=== PATIENT | male | born 1980 | race Caucasian/White ===

== ENCOUNTER → 2020-07-02 07:54 | Outpatient (BNVA) | payer OTHER, SELFPAY | PROVIDERS: PCP Hospitalist; Referring Provider Nurse Practitioner Family; Visit Provider Physician Assistant | DX: Z76.89 Persons encountering health services in other specified circumstances (principal) ==

== ENCOUNTER 2020-07-07 08:12 | Outpatient (REF) | payer OTHER, SELFPAY ==
--- NOTE | 2020-07-07 08:17 | FL_ITS ---
EXAMINATION: FL BARIUM SWALLOW CLINICAL INFORMATION: Dysphagia. Previous history of esophageal endoscopy for removal of obstructed food with COMPARISON: None. TECHNIQUE: Barium swallow examination is performed using fluoroscopic evaluation in addition to multiple fluoroscopic spot views. The patient is imaged both upright and prone and using both thick and thin sulfate along with effervescent granules. Fluoroscopy time: 2.5 minutes DAP: 12.768 Gy-cm2 Images: 63 FINDINGS: Following oral administration of thick barium and barium-coated turkey in upright view, there is normal propagation of bolus from the oral cavity through the pharynx and esophagus and into the stomach without any obstruction, narrowing or stricture. There is no diverticular lumbar mass seen in mid to distal esophagus. No extrinsic compression either. No retention of barium in the valleculae or piriform sinuses. On oral administration of thin barium in prone lying position, there is good distention of the entire esophagus without any intraluminal filling defect. There is no gastroesophageal reflux or hiatal hernia seen is supine, prone or decubitus lying position. FL/FL barium swallow IMPRESSION: Unremarkable barium swallow exam.
== END 2020-07-07 08:13 | disposition home or self-care (01) ==
LOC: HO.XRAY 08:12
PROVIDERS: Visit Provider Physician Assistant
DX: R13.10 Dysphagia, unspecified (principal)
CPT/HCPCS: 74220

== ENCOUNTER → 2020-07-21 08:18 | Outpatient (BNVA) | payer OTHER, SELFPAY | PROVIDERS: PCP Hospitalist; Visit Provider Physician Assistant | DX: Z76.89 Persons encountering health services in other specified circumstances (principal) ==

== ENCOUNTER 2023-06-04 11:15 | Emergency (ER) | payer OTHER, SELFPAY ==
--- NOTE | ~2023-06-04 | CT_ITS ---
EXAMINATION: CT ABDOMEN AND PELVIS WITH CONTRAST CLINICAL INFORMATION: Fall. Abdominal pain. COMPARISON: Chest CT from the same day TECHNIQUE: Multidetector volumetric images were obtained from the superior aspect of the liver through the pubic symphysis following administration 85 mL of Omnipaque 350 intravenous contrast. Sagittal and coronal reformatted images were obtained on the technologist's workstation. Oral contrast: Yes This CT examination was performed using dose optimization techniques as appropriate, variously including the following: *Automated exposure control *Adjustment of mA and/or kV according to patient size (this includes techniques or standardized protocols for targeted exams where dose is matched to indication/reason for exam; i.e. extremities or head) *Use of iterative reconstruction technique DLP: 401 mGy-cm FINDINGS: LUNG BASES: The visualized lung bases are clear. LIVER, GALLBLADDER, AND BILIARY TREE: The liver is normal in size, shape, and attenuation. No focal hepatic lesion or biliary ductal dilatation is present. The gallbladder is unremarkable with no evidence of radiopaque gallstones, gallbladder wall thickening, or obvious pericholecystic inflammatory changes. PANCREAS: Unremarkable. SPLEEN: Unremarkable. ADRENAL GLANDS: Unremarkable. KIDNEYS AND URETERS: The kidneys are normal in size, shape, and attenuation. No hydronephrosis, hydroureter, or calculi seen. Small left renal cyst. No imaging follow-up recommended. No perinephric stranding. BLADDER: Unremarkable. GASTROINTESTINAL TRACT: The small and large bowel are unremarkable. The appendix is unremarkable. ABDOMINAL WALL: No significant hernia is appreciated. LYMPH NODES: Normal. VASCULAR: Unremarkable. PELVIC VISCERA: Unremarkable. OSSEOUS STRUCTURES: Left posterior ninth rib fracture. No other fracture seen. CT/CT abdomen pelvis w IV con IMPRESSION: Left posterior ninth rib fracture. Otherwise unremarkable exam. Fleischner guidelines were followed.
--- NOTE | ~2023-06-04 | XR_ITS ---
EXAMINATION: XR RIBS, LEFT CLINICAL INFORMATION: Fall COMPARISON: None available. TECHNIQUE: 3 views of the left ribs and one view of the chest were obtained. FINDINGS: Lungs are clear. No consolidation, pneumothorax, or pleural effusion. The cardiomediastinal silhouette and pulmonary vasculature are normal. Left posterior lateral seventh through ninth minimally displaced rib fractures. XR/XR ribs LT min 3V w CXR1V IMPRESSION: Left posterior lateral seventh and ninth minimally displaced rib fractures. No evidence for acute disease in the chest.
--- NOTE | ~2023-06-04 | CT_ITS ---
EXAMINATION: CT CHEST WITH CONTRAST CLINICAL INFORMATION: Fall. Pain. COMPARISON: Chest and left rib x-rays from earlier the same day TECHNIQUE: Multidetector volumetric CT imaging of the chest was obtained after the administration of 85 mL of Omnipaque 350 intravenous contrast without immediate adverse reactions. Axial MIP volume rendering provided. Sagittal and coronal reformatted images were obtained. This CT examination was performed using dose optimization techniques as appropriate, variously including the following: *Automated exposure control *Adjustment of mA and/or kV according to patient size (this includes techniques or standardized protocols for targeted exams where dose is matched to indication/reason for exam; i.e. extremities or head) *Use of iterative reconstruction technique DLP: 214 mGy-cm FINDINGS: BACK SEAM STITCHER: Unremarkable LUNGS: The lungs are clear. MEDIASTINUM: The mediastinum is normal. No coronary artery calcification. PLEURA: There is no pleural effusion. No pleural mass or thickening. No pneumothorax. AXILLA: No lymphadenopathy. UPPER ABDOMEN: Unremarkable OSSEOUS STRUCTURES: Nondisplaced left posterior lateral seventh through ninth rib fractures. CT/CT chest w IV con IMPRESSION: Nondisplaced left posterior lateral seventh through ninth rib fractures. Fleischner guidelines were followed.
--- NOTE | ~2023-06-04 | XR_ITS ---
EXAMINATION: XR LUMBOSACRAL SPINE CLINICAL INFORMATION: Fall. Low back pain. COMPARISON: None available. TECHNIQUE: Three views of the lumbosacral spine. FINDINGS: There may be transitional anatomy or 6 lumbar-type vertebral bodies. Bone alignment is normal. No fracture or dislocation. Paraspinal soft tissues are normal. XR/XR lumbar spine 2-3V IMPRESSION: No fracture or dislocation.
--- NOTE | 2023-06-04 11:16 | ED_ITS ---
HPI - Fall General Chief Complaint: Fall Stated Complaint: Fall/L rib pain Time Seen by Provider: 06/04/23 11:38 Source: patient, family, RN notes reviewed and old records reviewed Mode of arrival: ambulatory Limitations: no limitations History of Present Illness HPI Narrative: 43-year-old male is here today for complaining of back pain. Patient reports that he was visiting friends on the [facility] yesterday. Around 17:00 he fell down 8-10 stairs. Patient states that he lost consciousness. Friends called ambulance and he was seen in the hospital on the [facility]. Patient reports that they did CT scan of the head and neck. Patient came home and this morning he woke up with severe back pain. His pain is worse in upper back than lower back. Worse on the left than on the right side. Patient denies trouble breathing. Reports occasional spasms in his back. Patient denies any nausea or vomiting. denies any difficulty urinating. Denies any blood in the urine. Denies urinary or fecal incontinence. MD complaint: fall Onset (ago): day(s) Fall from: standing and down stairs (#) (8 stairs) Fall witnessed: yes, by family ( by friends ) Place fall occurred: other ( vacation plans) Loss of consciousness: yes Prolonged down time: unclear Context: alcohol use Related Data Previous Rx's Medication Instructions Recorded sucralfate 100 mg/mL oral 10 ml PO BID #420 mL 07/02/20 suspension (Carafate) Miracle Mouthwash-Garcia 240 mL 10 ml PO BID #240 mL 11/01/21 liquid acetaminophen 500 mg tablet 1,000 mg (2 x 500 mg) PO QID PRN 06/04/23 pain #30 tabs diazepam 5 mg tablet (Valium) 5 mg PO TID PRN muscle spasm #14 06/04/23 tabs ibuprofen 600 mg tablet 600 mg PO Q6H PRN pain #20 tabs 06/04/23 oxycodone 5 mg tablet 5 mg PO Q6H PRN pain #14 tabs 06/04/23 Allergies Allergy/AdvReac Type Severity Reaction Status Date / Time No Known Allergies Allergy Verified 06/04/23 11:16 [No Known Allergies*] Review of Systems 2 Review of Systems: Constitutional : No Weight loss, No Fever, No Chills, No Night Sweats, No Fatigue, No Malaise ENT/Mouth : No Hearing loss, No Ear Pain, No Nasal Congestion, No Sinus Pain, No Hoarseness, No sore throat, No Rhinorrhea, No Swallowing Difficulty Eyes: No Eye Pain, No Swelling, No Redness, No Foreign Body, No Discharge, No Vision Changes Cardiovascular : No Chest Pain, No SOB, No Dyspnea on Exertion, No Orthopnea, No Edema, No Palpitations Respiratory : No Cough, No Sputum, No Wheezing, No Smoke Exposure, No Dyspnea Gastrointestinal : No Nausea, No Vomiting, No Diarrhea, No Constipation, No abdominal Pain, No Hematochezia, No Melena Genitourinary : no irregular bleeding, No Dysuria, No Urinary Frequency, No Hematuria, No Urinary Incontinence, No Urgency, No Flank Pain, No Urinary Flow Changes, No Hesitancy Musculoskeletal : No joint pain, No Myalgias, No Joint Swelling, back pain, upper and lower Skin : No Skin Lesions, No rash Neuro : No Weakness, No Numbness, No Paresthesias, No Loss of Consciousness, No Dizziness, No Headache Yes all other systems are reviewed and are negative [facility] Past Medical History Medical History (Updated 06/04/23 @ 15:00 by ERIN Sotomayor) Hematuria, microscopic Elevated liver enzymes Food impaction of esophagus Dysphagia Family History Family History (Updated 07/02/20 @ 08:39 by Laura Hickey PA-C) Father No problems noted. Mother No problems noted. 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 Physical Exam 2 Vital Signs: Vital Signs: Last Vital Signs Temp 98.7 F 06/04/23 11:17 Pulse 88 06/04/23 11:17 Resp 20 06/04/23 12:27 BP 148/88 H 06/04/23 11:17 Pulse Ox 99 06/04/23 11:17 O2 Del Method Room Air 06/04/23 11:17 BMI result Body Mass Index 22.1 Const: General: healthy appearing, no acute distress and well developed N utritional Appearance: well nourished Orientation/consciousness: patient oriented x3 HEENT: Head: Yes normal to inspection, Yes normocephalic and Yes atraumatic Face and sinus: Yes normal facial exam Mouth: Normal oral and palatal mucosa present Throat: Yes posterior oropharynx normal, Yes tonsils normal and Yes uvula midline Eyes: General: appearance normal, both eyes and all related structures Neck: Neck: Yes normal visual inspection, Yes full ROM and Yes trachea midline Thyroid: Thyroid normal Resp: Effort & Inspection: normal respiratory effort, able to speak in complete sentences, no tracheal deviation and symmetric chest movement A uscultation: clear to auscultation bilaterally Cardio: Rate: regular rate Heart sounds: S1 normal heart sound present and S2 normal heart sound present GI: Inspection: Yes normal to inspection and No distended Palpation (GI): S oft to palpation, not firm, nontender and No hepatosplenomegaly present A uscultation: normal bowel sounds : General: Yes no CVA tenderness Back/Spine/Pelvis: Other: thoracic and lumbar paraspinal muscle tenderness more on the left than right Back: no CVA tenderness Cervical Spine: normal cervical lordosis T horacic/Lumbar Spine: thoracic and lumbar spine normal to inspection Skin: General skin exam: elasticity normal, turgor normal and dry skin Neuro: General: patient oriented x3 Psych: Appearance: grossly normal Mental Status: mental status grossly normal Course Course Course Narrative: RME: 43yo M w/no sig PMHx c/o fall down about 8-10 stairs last night w/+head stike & LOC. Was seen at [facility] ED after incident last night & had CT Head/C- spine which were unremarkable. Now c/o L low back and rib pain worsening since fall. denies incontinence/retention. denies taking AC no midline spinous ttp. +L lumbar MSK and left low rib ttp. abdomen soft nontender. ambulatory XRs ordered Full HPI, ROS and PE to be performed by primary ED provider. 43-year-old male is here today for complaining of back pain. Patient reports that he was visiting friends on the [facility] yesterday. Around 17:00 he fell down 8-10 stairs. Patient states that he lost consciousness. Friends called ambulance and he was seen in the hospital on the [facility]. Patient reports that they did CT scan of the head and neck. Patient came home and this morning he woke up with severe back pain. His pain is worse in upper back than lower back. Worse on the left than on the right side. Patient denies trouble breathing. Reports occasional spasms in his back. Patient denies any nausea or vomiting. denies any difficulty urinating. Denies any blood in the urine. Denies urinary or fecal incontinence. Case was signed out from nurse practitioner Deanna to follow-up on abdomen and chest CTs to evaluate for any further injury then the 3 known left-sided rib fractures CT of abdomen and CT of chest did not reveal any further injury then the rib fractures, I re-evaluated the patient will only has pain in the area of the rib fractures in his otherwise breathing comfortably I double-checked all results and he had negative lumbar spine x-ray and labs that did not reveal any acute pathology He is written for pain killer and requested muscle relaxant and is discharged home Reevaluation(s) Reevaluation #1: Patient will be given muscle relaxer. 2.5 mg Valium IV. Patient had CT scan of abdomen and chest and results are pending. Case I now to oncoming provider Cory KHAN Medications Administered Discontinued Medications Generic Name Dose Route Start Last Admin Trade Name Freq PRN Reason Stop Dose Admin Diazepam 2.5 mg 06/04/23 13:57 06/04/23 14:05 Diazepam 10 Mg/2 Ml Cartridge IVPUSH 06/04/23 13:58 2.5 mg STAT STA Administration Iohexol 100 ml 06/04/23 13:22 06/04/23 13:23 Iohexol 350 Mg/Ml 100 Ml Infus..Btl IV 06/04/23 13:23 85 ml ONCE ONE Administration Morphine Sulfate 2 mg 06/04/23 12:14 06/04/23 12:27 Morphine Sulfate 2 Mg/Ml Cartridge IVPUSH 06/04/23 12:15 2 mg ONCE ONE Administration Protocol Ondansetron HCl 4 mg 06/04/23 12:14 06/04/23 12:27 Ondansetron Hcl 4 Mg/2 Ml Vial IVPUSH 06/04/23 12:15 4 mg ONCE STA Administration Medical Decision Making Lab Data 06/04/23 12:21 Labs: Lab Results 06/04/23 06/04/23 06/04/23 Range/Units 12:21 12:29 14:09 PT 11.0 L (11.1-13.3) SEC INR 0.9 (0.9-1.1) Sodium 141 (135-145) mmol/L Potassium 3.7 (3.3-5.1) mmol/L Chloride 106 (96-108) mmol/L Carbon Dioxide 26 (22-29) mmol/L Anion Gap 13 (12-20) BUN 22 H (9-16) mg/dL Creatinine 0.94 (0.5-1.4) mg/dL Estim Creat Clear Calc 97.3 Estimated GFR > 60 Random Glucose 116 H (60-115) mg/dL Calcium 9.6 (8.4-10.2) mg/dL Total Bilirubin 0.6 (0.0-1.0) mg/dL AST 29 (5-37) U/L ALT 24 (0-40) U/L Alkaline Phosphatase 55 (39-117) U/L Total Protein 7.1 (6.5-8.0) g/dL Albumin 4.5 (3.5-5.0) g/dL Urine Color Yellow Urine Appearance Clear Urine pH 6.0 (5.0-9.0) Ur Specific Pecan Gap >= 1.030 H (1.005-1.025) Urine Protein Negative (Neg-Trace) mg/dL Urine Glucose (UA) Negative (Negative) mg/dL Urine Ketones Negative (Negative) mg/dL Urine Blood Negative (Negative) Urine Nitrite Negative (Negative) Ur Leukocyte Esterase Negative (Negative) Independent Interpretation I performed an independent interpretation of an: Plain X-Ray Interpretation: RIBS X-RAY FINDINGS: Lungs are clear. No consolidation, pneumothorax, or pleural effusion. The cardiomediastinal silhouette and pulmonary vasculature are normal. Left posterior lateral seventh through ninth minimally displaced rib fractures. XR/XR ribs LT min 3V w CXR1V IMPRESSION: Left posterior lateral seventh and ninth minimally displaced rib fractures. No evidence for acute disease in the chest. LUMBAR SPINE FINDINGS: There may be transitional anatomy or 6 lumbar-type vertebral bodies. Bone alignment is normal. No fracture or dislocation. Paraspinal soft tissues are normal. XR/XR lumbar spine 2-3V IMPRESSION: No fracture or dislocation. Discharge Plan Discharge Clinical Impression: Fracture, ribs Patient Disposition: Home, Self-Care Additional Instructions: imaging showed 3 broken ribs, no broken bones in the back no other dangerous findings Blood tests did not show anything worrisome Rib fractures can take several weeks to heal Use pain killers as needed, incentive spirometer or taking deep breaths to make sure lungs are filling completely is useful Follow closely with primary doctor Return any time for difficulty breathing cough fever any signs pneumonia any worse condition or any concerns Prescriptions: New acetaminophen 500 mg tablet 1,000 mg PO QID PRN (Reason: pain) Qty: 30 0RF ibuprofen 600 mg tablet 600 mg PO Q6H PRN (Reason: pain) Qty: 20 0RF diazepam [Valium] 5 mg tablet 5 mg PO TID PRN (Reason: muscle spasm) Qty: 14 0RF oxycodone 5 mg tablet 5 mg PO Q6H PRN (Reason: pain) Qty: 14 0RF Rx Instructions: Partial Fill upon patient request. No Action Miracle Mouthwash-Garcia 240 mL liquid 10 ml PO BID Qty: 240 0RF Rx Instructions: nystatin 100,000 unit/mL oral susp 80 mL; Lidocaine Viscous 2 % johana 80 mL; Maalox 200-200-20 mg/5 mL susp 80 mL; Total 240 mL Swish and Spit sucralfate [Carafate] 100 mg/mL suspension 10 ml PO BID Qty: 420 0RF Interventions: ED Discharge Assessment Last Done: 06/04/23 15:12 Discharge Date/Time: 06/04/23 15:12
[2023-06-04 11:17] VITALS: BP 148/88; PULSE 88; RESP 18; TEMP 37.1; O2SAT 99; BMI 22.1
[2023-06-04 12:27] VITALS: RESP 20
[2023-06-04] MEDS: Morphine Sulfate 2 MG/ML CARTRIDGE IVPUSH (12:27)
[2023-06-04] MEDS: ondansetron HCL 4 MG/2 ML VIAL IVPUSH (12:27)
[2023-06-04 12:48] LABS: INTERNATIONAL NORM RATIO 0.9 (0.9-1.1)
[2023-06-04 12:54] LABS: Alanine Aminotransferase 24 U/L (0-40); Albumin Level 4.5 g/dL (3.5-5.0); Alkaline Phosphatase 55 U/L (39-117); Anion Gap 13 (12-20); Aspartate Amino Transferase 29 U/L (5-37); Bilirubin Total 0.6 mg/dL (0.0-1.0); Blood Urea Nitrogen 22 mg/dL (9-16); Calcium 9.6 mg/dL (8.4-10.2); Carbon Dioxide 26 mmol/L (22-29); Chloride 106 mmol/L (96-108); Creatinine Clr Calc Pharmacy 97.3; Estimated Glomerular Filt Rate > 60; Glucose Random 116 mg/dL (60-115); Potassium 3.7 mmol/L (3.3-5.1); Sodium 141 mmol/L (135-145); Total Protein 7.1 g/dL (6.5-8.0)
[2023-06-04] MEDS: iohexoL 350 MG/ML 100 ML INFUS..BTL IV (13:23)
[2023-06-04] MEDS: diazePAM 10 MG/2 ML CARTRIDGE 2.5 MG IVPUSH (14:05)
[2023-06-04 14:20] LABS: Appearance Urine Clear; Color Urine Yellow; Glucose Urine UA Negative (Negative); Leukocyte Esterase Urine Negative (Negative); Nitrite Urine Negative (Negative); Specific Gravity - Urine >= 1.030 (1.005-1.025); Urine Blood Negative (Negative); Urine Ketones Negative (Negative); Urine Protein Negative (Neg-Trace)
== END 2023-06-04 15:12 | disposition home or self-care (01) ==
PROVIDERS: Nurse Practitioner Family; Emergency Provider Emergency Medicine; PCP Nurse Practitioner Family
DX: S22.42XA Multiple fractures of ribs, left side, initial encounter for closed fracture (principal); W10.9XXA Fall (on) (from) unspecified stairs and steps, initial encounter; Y93.9 Activity, unspecified; Y92.9 Unspecified place or not applicable; Y99.9 Unspecified external cause status; M54.9 Dorsalgia, unspecified; M54.50 Low back pain, unspecified
CPT/HCPCS: 36415; 71101; 71260; 72100; 74177; 80053; 81003; 85610; 96374; 96375; 99283; 99284; J2270; J2405; J3360; Q9967